=== PATIENT | male | born 1980 | race Caucasian/White ===

== ENCOUNTER → 2020-10-01 07:16 | Outpatient (CLI) | payer OTHER, SELFPAY ==
[2020-10-01 12:44] LABS: Influenza Control Positive
[2020-10-02 17:42] LABS: SARS-CoV-2 RNA PCR Negative
== END ==
PROVIDERS: PCP Family Medicine; Visit Provider Nurse Practitioner Adult Health
DX: R68.89 Other general symptoms and signs (principal); Z20.822 Contact with and (suspected) exposure to COVID-19
CPT/HCPCS: 87804; C9803; U0003; U0005